=== PATIENT | female | born 1980 | race Caucasian/White ===

== ENCOUNTER 2022-05-13 18:37 | Emergency (ER) | payer SELFPAY ==
[~2022-05-13] VITALS: Ht 157.5 cm; Wt 89.4 kg
[2022-05-13] MEDS ORDERED: KETOROLAC TROMETHAMINE 30 MG/ML VIAL IV STA (18:46)
[2022-05-13 19:04] LABS: BASOPHILS % 0.5 % (0.0-1.0); EOSINOPHILS # (AUTO) 0.1 (0.0-0.4); HEMATOCRIT 37.2 % (34.2-44.1); HEMOGLOBIN 12.8 g/dL (12.0-16.0); LYMPHOCYTES # (AUTO) 2.2 (1.0-3.2); LYMPHOCYTES % 30.2 % (18.0-39.1); MEAN CORPUSCULAR HEMOGLOBIN 30.4 pg (28-32); MEAN CORPUSCULAR HGB CONC 34.4 g/dL (31-35); MEAN CORPUSCULAR VOLUME 88.4 fL (81-99); MONOCYTES # (AUTO) 0.5 (0.2-0.8); MONOCYTES % 7.3 % (4.4-11.3); NEUTROPHILS # (AUTO) 4.4 (2.1-6.9); NEUTROPHILS % 60.7 % (38.7-80.0); PLATELET COUNT 345 x10e3/uL (140-360); RED BLOOD COUNT 4.21 x10e6/uL (3.6-5.1); RED CELL DISTRIBUTION WIDTH 12.8 % (11.7-14.4)
[2022-05-13] MEDS ORDERED: KETOROLAC TROMETHAMINE 30 MG/ML VIAL ONE (19:07)
[2022-05-13 19:28] LABS: ALANINE AMINOTRANSFERASE 68 IU/L (0-55); ALBUMIN 3.4 g/dL (3.5-5.0); ALBUMIN/GLOBULIN RATIO 0.7 (0.8-2.0); ALKALINE PHOSPHATASE 104 IU/L (40-150); ANION GAP 13.6 mmol/L (8-16); BLOOD UREA NITROGEN 12 mg/dL (7-26); BUN/CREATININE RATIO 14 (6-25); CALCIUM 8.7 mg/dL (8.4-10.2); CARBON DIOXIDE 24 mmol/L (22-29); CHLORIDE 104 mmol/L (98-107); CREATINE KINASE 164 IU/L (29-168); CREATININE, SERUM 0.88 mg/dL (0.57-1.11); GLUCOSE 110 mg/dL (74-118); POTASSIUM 3.6 mmol/L (3.5-5.1); SODIUM 138 mmol/L (136-145)
[2022-05-13] MEDS ORDERED: IOPAMIDOL 370 MG/ML 100 ML INFUS..BTL INJ ONE (20:54)
== END 2022-05-13 21:22 | disposition home or self-care (01) ==
LOC: ER 18:46
DX: R07.89 Other chest pain (principal); R06.00 Dyspnea, unspecified; R94.31 Abnormal electrocardiogram [ECG] [EKG]
CPT/HCPCS: 36415; 71045; 71260; 80053; 82550; 82553; 84484; 84702; 85025; 93041; 99284; J1885; Q9967

== ENCOUNTER 2025-04-20 13:38 | Emergency (ER) | payer BC ==
[~2025-04-20] VITALS: Ht 157.5 cm; Wt 70.8 kg
[~2025-04-20 13:38] MED LIST: ONDANSETRON ODT4 MG SL
[2025-04-20 13:56] VITALS: PULSE 107; RESP 20
[2025-04-20 15:07] LABS: BASOPHILS % 0.2 % (0.0-1.0); EOSINOPHILS % 0.1 % (0.0-6.0); LYMPHOCYTES % 6.5 % (18.0-39.1); MONOCYTES % 8.0 % (4.4-11.3); NEUTROPHILS % 84.9 % (38.7-80.0); RED CELL DISTRIBUTION WIDTH 12.8 % (11.7-14.4)
[2025-04-20] MEDS: ONDANSETRON HCL INJ 2MG/ML 2ML 2 MG/ML VIAL IV STA (15:08)
[2025-04-20] MEDS: SODIUM CHLORIDE 0.9% 1000ML 1,000 ML IV STA (15:08)
[2025-04-20] MEDS: KETOROLAC TROMETHAMINE 30 MG/ML VIAL IV STA (15:08)
[2025-04-20 15:09] LABS: LEUKOCYTE ESTERASE ,URINE MODERATE (NEGATIVE); PROTEIN,URINE DIPSTICK 2+ (NEGATIVE); URINE UROBILINOGEN 0.2 mg/dL (0.2 - 1)
[2025-04-20 15:20] LABS: WBC,URINE (MAN) 21-50 /HPF (0-5)
[2025-04-20 15:29] LABS: EST GLOMERULAR FILTRATION RATE 92 ML/MIN (>=60)
[2025-04-20] MEDS ORDERED: IOPAMIDOL 370 MG/ML 100 ML INFUS..BTL INJ ONE (15:33)
[2025-04-20] MEDS ORDERED: NITROFURANTOIN100 MG PO (16:52)
[2025-04-20] MEDS ORDERED: NAPROSYN500 MG PO (16:52)
[2025-04-20 17:13] VITALS: TEMP 98.3
[2025-04-20 17:38] VITALS: PULSE 72; RESP 18; O2SAT 100
== END 2025-04-20 17:32 | disposition home or self-care (01) ==
LOC: ER 14:34
DX: N39.0 Urinary tract infection, site not specified (principal); R10.30 Lower abdominal pain, unspecified; R11.2 Nausea with vomiting, unspecified; N83.292 Other ovarian cyst, left side
CPT/HCPCS: 36415; 74177; 80053; 81001; 83518; 83690; 84702; 85025; 87040; 87070; 87071; 87186; 87205; 99284; J0696; J1885; J2405; J7030; Q9967

== ENCOUNTER 2025-04-21 20:37 | Inpatient (IN) | payer BC ==
[~2025-04-21] VITALS: Ht 157.5 cm; Wt 79.8 kg
[~2025-04-21 20:37] MED LIST changes: +NAPROSYN500 MG PO; +NITROFURANTOIN100 MG PO
[2025-04-21 21:07] VITALS: PULSE 106; RESP 20
[2025-04-21] MEDS: ONDANSETRON HCL INJ 2MG/ML 2ML 2 MG/ML VIAL IV STA (21:27)
[2025-04-21] MEDS: SODIUM CHLORIDE 0.9% 1000ML 1,000 ML IV ONE (21:28)
[2025-04-21] MEDS: ACETAMINOPHEN 325 MG TAB PO ONE (21:28)
[2025-04-21 21:42] LABS: LEUKOCYTE ESTERASE ,URINE SMALL (NEGATIVE); PROTEIN,URINE DIPSTICK 2+ (NEGATIVE); URINE UROBILINOGEN 0.2 mg/dL (0.2 - 1)
[2025-04-21 21:42] LABS: INR 1.05
[2025-04-21 21:47] LABS: EPITHELIAL CELLS,URINE MODERATE /LPF; WBC,URINE (MAN) 21-50 /HPF (0-5)
[2025-04-21 21:49] LABS: EST GLOMERULAR FILTRATION RATE 101.0 ML/MIN (>=60)
[2025-04-21 21:54] LABS: BASOPHILS % 0.2 % (0.0-1.0); EOSINOPHILS % 0.2 % (0.0-6.0); LYMPHOCYTES % 3.7 % (18.0-39.1); MONOCYTES % 6.0 % (4.4-11.3); NEUTROPHILS % 89.5 % (38.7-80.0); RED CELL DISTRIBUTION WIDTH 13.1 % (11.7-14.4)
[2025-04-21 23:04] VITALS: PULSE 86; RESP 15; O2SAT 99
[2025-04-21 23:46] VITALS: TEMP 98.3
[2025-04-22] VITALS (9 sets, daily range): BP systolic 106–137; BP diastolic 50–69; PULSE 72–94; RESP 18–20; TEMP 98–99; O2SAT 97–100
[2025-04-22] MEDS: SODIUM CHLORIDE 0.9% 1000ML 1,000 ML IV SCH (00:33)
[2025-04-22] MEDS: ACETAMINOPHEN 325 MG TAB PO PRN (05:01)
[2025-04-22 05:48] LABS: BASOPHILS % 0.2 % (0.0-1.0); EOSINOPHILS % 0.4 % (0.0-6.0); LYMPHOCYTES % 3.4 % (18.0-39.1); MONOCYTES % 4.7 % (4.4-11.3); NEUTROPHILS % 91.1 % (38.7-80.0); RED CELL DISTRIBUTION WIDTH 13.1 % (11.7-14.4)
[2025-04-22 06:16] LABS: EST GLOMERULAR FILTRATION RATE 91.0 ML/MIN (>=60)
[2025-04-22] MEDS: HYDROCODONE/APAP 5MG-325MG TAB PO PRN (10:26)
[2025-04-22] MEDS: CALCIUM CARBONATE 500 MG CHEWABLE TABS PO PRN (10:26)
[2025-04-22] MEDS: Morphine 4mg INJECTION 4 MG/ML INJ IV PRN (20:00)
[2025-04-22] MEDS: ONDANSETRON HCL INJ 2MG/ML 2ML 2 MG/ML VIAL IV PRN (20:00)
[2025-04-23] VITALS (7 sets, daily range): BP systolic 106–134; BP diastolic 59–87; PULSE 67–83; RESP 18–20; TEMP 97.9–98.8; O2SAT 97–100
[2025-04-23] MEDS: PHENAZOPYRIDINE HCL 100 MG TAB PO ONE (19:02)
[2025-04-23 20:50] LABS: EST GLOMERULAR FILTRATION RATE 106.0 ML/MIN (>=60); PHOSPHORUS 2.7 MG/DL (2.3-4.7)
[2025-04-24] MEDS: HYDROCODONE/APAP 5MG-325MG TAB PO PRN (00:20)
[2025-04-24] MEDS: POTASSIUM CHLORIDE 10MEQ EA PO ONE ×2 (01:52→06:02)
[2025-04-24 04:00] VITALS: BP 109/66; PULSE 62; RESP 18; TEMP 97.6; O2SAT 99
[2025-04-24 08:27] LABS: BASOPHILS % 0.3 % (0.0-1.0); EOSINOPHILS % 2.0 % (0.0-6.0); LYMPHOCYTES % 24.9 % (18.0-39.1); MONOCYTES % 10.1 % (4.4-11.3); NEUTROPHILS % 62.4 % (38.7-80.0); RED CELL DISTRIBUTION WIDTH 13.0 % (11.7-14.4)
[2025-04-24 08:30] VITALS: BP 120/78; PULSE 62; RESP 18; TEMP 98; O2SAT 99
[2025-04-24 08:45] LABS: EST GLOMERULAR FILTRATION RATE 103.0 ML/MIN (>=60)
[2025-04-24 08:47] VITALS: BP 120/78; PULSE 62; RESP 18; TEMP 98; O2SAT 99
[2025-04-24] MEDS ORDERED: TUMS200 MG PO (09:52)
[2025-04-24] MEDS ORDERED: ACETAMINOPHEN325 M1 PO (09:52)
[2025-04-24] MEDS ORDERED: CEFUROXIME250 MG PO (09:52)
== END 2025-04-24 11:31 | disposition home or self-care (01) | DRG 872 ==
LOC: ER 21:23 → ERHOLD 22:30 → MED/SURG2 04-22 → OBSVTOIN 04-23 11:45
PROVIDERS: ADMIT Internal Medicine; ATTEND Internal Medicine
PROC: 3E0333Z Introduction of Anti-inflammatory into Peripheral Vein, Percutaneous Approach (ICD-10-PCS; principal; 2025-04-22)
DX: A41.81 Sepsis due to Enterococcus (principal); N39.0 Urinary tract infection, site not specified; N12 Tubulo-interstitial nephritis, not specified as acute or chronic; R11.2 Nausea with vomiting, unspecified; E87.6 Hypokalemia; R19.09 Other intra-abdominal and pelvic swelling, mass and lump; N94.6 Dysmenorrhea, unspecified; Z90.49 Acquired absence of other specified parts of digestive tract
CPT/HCPCS: 36415; 71045; 80048; 80053; 81001; 83605; 83735; 84100; 85025; 85610; 85730; 87040; 87086; 87186; 93005; 94799; 99284; G0378; J0696; J2270; J2405; J7030